=== PATIENT | female | born 1985 | race Caucasian/White ===

== ENCOUNTER 2019-05-27 19:28 | Emergency (ER) | payer OTHER ==
[~2019-05-27] VITALS: Ht 167.6 cm; Wt 66.6 kg
[2019-05-27 19:59] VITALS: BP 117/71
[2019-05-27] MEDS ORDERED: DIPH,PERTUSS(ACELL),TET VAC/PF 0.5 ML IM-VACC ONE ×2 (20:00→20:35)
[2019-05-27] MEDS ORDERED: LIDOCAINE-MPF 1%, 5ML INFIL ONE (20:00)
--- NOTE | 2019-05-27 20:02 | NUR ---
PT TO LOBBY, WAIT TIME EXPLAINED.
--- NOTE | 2019-05-27 20:30 | NUR ---
PT HERE WITH C/O LEFT RING FINGER PAIN AFTER INJURY AT WORK. PT DOES HAVE LAC, BLEEDING CONTROLLED.
[2019-05-27] MEDS ORDERED: NEOSPORIN OINT. PKT 1 PACKET ONE (20:35)
[2019-05-27] MEDS ORDERED: LIDOCAINE-MPF 1%, 5ML ONE ×2 (20:35→20:36)
--- NOTE | 2019-05-27 20:48 | NUR ---
TECH AT BEDSIDE FOR WOUND IRRIGATION. LIDO GIVEN TO PROVIDER.
--- NOTE | 2019-05-27 20:55 | NUR ---
TDAP ADMINISTERED PER ORDER.
--- NOTE | 2019-05-27 21:02 | NUR ---
REPORT GIVEN TO SHELLY BOYD. CARE TRANSFERRED.
== END 2019-05-27 21:58 | disposition home or self-care (01) ==
LOC: ED 21:52
DX: S61.215A Laceration without foreign body of left ring finger without damage to nail, initial encounter (principal); X58.XXXA Exposure to other specified factors, initial encounter; Y93.89 Activity, other specified; Y92.009 Unspecified place in unspecified non-institutional (private) residence as the place of occurrence of the external cause; Y99.8 Other external cause status
CPT/HCPCS: 12041; 90471; 90715